=== PATIENT | male | born 1960 | race African-American/Black ===

== ENCOUNTER 2020-03-25 20:27 | Emergency (ER) | payer OTHER, SELFPAY ==
[2020-03-25 20:34] VITALS: BP 155/88; PULSE 56; RESP 18; TEMP 36.7; O2SAT 99; BMI 29.1
--- NOTE | 2020-03-25 21:09 | ECG_ITS ---
Test Reason : FALL Blood Pressure : / mmHG Vent. Rate : 052 BPM Atrial Rate : 052 BPM P-R Int : 178 ms QRS Dur : 088 ms QT Int : 426 ms P-R-T Axes : 054 014 031 degrees QTc Int : 396 ms Sinus bradycardia Otherwise normal ECG When compared with ECG of 21-JUL-2006 14:33, No significant change was found Referred By: Sharon Garcia Electronically Signed By:BAILEE BURTON
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
--- NOTE | 2020-03-25 21:10 | CT_ITS ---
EXAMINATION: CT HEAD WITHOUT CONTRAST CT CERVICAL SPINE WITHOUT CONTRAST CLINICAL INFORMATION: Fall. Trauma. COMPARISON: None. TECHNIQUE: Imaging was performed from the skull base to vertex without intravenous administration of contrast. In addition, helical noncontrast CT imaging was acquired through the cervical spine and source images were reviewed along with axial reconstructions and sagittal and coronal MPRs. [This CT examination was performed using dose optimization techniques as appropriate, variously including the following: *Automated exposure control *Adjustment of mA and/or kV according to patient size (this includes techniques or standardized protocols for targeted exams where dose is matched to indication/reason for exam; i.e. extremities or head) *Use of iterative reconstruction technique] DLP: 1386 mGy-cm FINDINGS: HEAD: Large acute scalp hematoma over the left frontal bone and vertex. There is no skull fracture. No intracranial mass, hemorrhage, or midline shift is visualized. The ventricles and sulci are age-appropriate. No extra-axial collections are identified. The paranasal sinuses and mastoid air cells are well aerated. 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 Transpedicular screws with vertical stabilization bar at C1-C2 bilateral. Hardware is intact. There is no acute fracture. There is no subluxation. No prevertebral soft tissue swelling. There is multilevel degenerative spondylosis. There is multilevel disc height narrowing, endplate spurring and facet joint arthrosis. CT/CT cervical spine wo con IMPRESSION: 1. No acute intracranial pathology. 2. No CT evidence of acute cervical spine fracture or traumatic subluxation. Old nonunited fracture of dens. Orthopedic hardware, bilateral transpedicular screws, C1-C2
[2020-03-25] MEDS: Ketorolac Tromethamine 15 MG/ML VIAL IVPUSH (21:42)
[2020-03-25 21:48] LABS: MANUAL DIFF FLAG NO
[2020-03-25 21:54] LABS: Basophils Percent Auto 0.4 % (0-2); Eosinophils Absolute Auto 0.2 X10*3/uL (0.0-0.4); Eosinophils Percent Auto 2.2 % (0-4); Hematocrit 39.5 % (42-52); Hemoglobin 13.7 g/dl (14.0-18.0); Imm Gran Abs Auto 0.03 X10*3/uL (0.00-0.03); Imm Gran Pct Auto 0.4 % (0.0-0.4); Lymphocytes Absolute Auto 1.8 X10*3/uL (1.2-4.9); Lymphocytes Percent Auto 23.2 % (20-40); Mean Corpuscular HGB Conc 34.7 g/dl (31.0-36.0); Mean Corpuscular Hemoglobin 30.2 pg (27.0-33.0); Mean Corpuscular Volume 87.2 fL (80-98); Mean Platelet Volume 10.6 fL (9.4-12.4); Monocytes Absolute Auto 0.6 X10*3/uL (0.1-1.2); Monocytes Percent Auto 7.3 % (2-11); Neutrophils Absolute Auto 5.1 X10*3/uL (2.0-8.3); Neutrophils Percent Auto 66.5 % (45-73); Platelet Count 183 X10*3/uL (160-400); Red Blood Count 4.53 X10*6/uL (4.60-5.80); Red Cell Distribution Width 12.2 % (11.0-16.0); White Blood Count 7.7 X10*3/uL (4.8-10.8)
[2020-03-25 22:18] LABS: Alanine Aminotransferase 19 U/L (0-40); Albumin Level 4.1 g/dL (3.5-5.0); Alkaline Phosphatase 70 U/L (39-117); Anion Gap 14 (12-20); Aspartate Amino Transferase 24 U/L (5-37); Bilirubin Total 0.2 mg/dL (0.0-1.0); Blood Urea Nitrogen 16 mg/dL (9-16); Calcium 8.8 mg/dL (8.4-10.2); Carbon Dioxide 26 mmol/L (22-29); Chloride 105 mmol/L (96-108); Creatinine Clr Calc Pharmacy 83.4; Estimated Glomerular Filt Rate > 60; Glucose Random 119 mg/dL (60-115); Magnesium 2.2 mg/dL (1.6-2.6); Potassium 4.5 mmol/l (3.3-5.1); Sodium 140 mmol/L (135-145); Total Protein 7.2 g/dL (6.5-8.0)
[2020-03-25] MEDS: fentaNYL citrate/PF 100 MCG/2 ML VIAL 25 MCG IVPUSH (23:32)
[2020-03-26] MEDS: Lidocaine HCl 2%/Epi 1:100,000 20 ML VIAL INFILTRATI (00:17)
--- NOTE | 2020-03-26 01:28 | PC.NURSE ---
SUTURES TO FOREHEAD. MD AT BEDSIDE. PT TOLERATED PROCEDURE WELL, BLEEDING CONTROLLED. PT SEATED UPRIGHT AND AWAKE.
[2020-03-26 02:44] VITALS: BP 139/85; PULSE 56; RESP 16; TEMP 36.4; O2SAT 97
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
== END 2020-03-26 03:03 | disposition home or self-care (01) ==
PROVIDERS: Emergency Provider Student in an Organized Health Care Education/Training Program; PCP Internal Medicine
DX: S01.01XA Laceration without foreign body of scalp, initial encounter (principal); W20.8XXA Other cause of strike by thrown, projected or falling object, initial encounter; S00.03XA Contusion of scalp, initial encounter; Y93.89 Activity, other specified; Y92.014 Private driveway to single-family (private) house as the place of occurrence of the external cause; Y99.9 Unspecified external cause status
CPT/HCPCS: 12002; 36415; 70450; 72125; 80053; 82550; 83735; 85025; 90471; 90715; 93005; 96372; 96374; 96375; 99284; J1885; J3010

== ENCOUNTER 2020-04-01 02:51 | Emergency (ER) | payer OTHER, SELFPAY ==
[2020-04-01 03:13] VITALS: BP 144/76; PULSE 55; RESP 18; TEMP 37; O2SAT 99; BMI 26.2
--- NOTE | 2020-04-01 03:14 | CT_ITS ---
EXAMINATION: CT HEAD WITHOUT CONTRAST CLINICAL INFORMATION: Recent fall, persistent severe headaches COMPARISON: 03/25/2020 TECHNIQUE: Contiguous axial imaging was performed from the skull base to vertex without intravenous administration of contrast. This CT examination was performed using dose optimization techniques as appropriate, variously including the following: *Automated exposure control *Adjustment of mA and/or kV according to patient size (this includes techniques or standardized protocols for targeted exams where dose is matched to indication/reason for exam; i.e. extremities or head) *Use of iterative reconstruction technique DLP: 803 mGy-cm FINDINGS: There is no evidence of acute intracranial hemorrhage or territorial infarction. No abnormal mass effect or midline shift is seen. Marquez to white matter differentiation is well preserved. No extra-axial fluid collections are identified. The ventricles are normal in size. Redemonstrated chronic appearing infarct in the kirill. No acute fracture is seen. Redemonstrated left frontal scalp hematoma, slightly decreased from prior.. The mastoid air cells and visualized portions of the paranasal sinuses are well aerated. CT/CT head/brain wo con IMPRESSION: No acute intracranial pathology. Redemonstrated left frontal scalp hematoma.
--- NOTE | 2020-04-01 03:15 | ED_ITS ---
HPI - Headache General Chief Complaint: Head Injury Stated Complaint: HEAD PAIN Time Seen by Provider: 04/01/20 02:53 Source: patient and old records reviewed Mode of arrival: ambulatory Limitations: no limitations History of Present Illness HPI Narrative: ongoing headache since traumatic head injury on 03/[address] of head/cspine at that time, had 4 sutures placed, ongoing headaches not responding to tylenol, has periorbital ecchymosis MD elicited complaint: headache Pertinent past history: other (recent trauma with laceration to scalp, negative CT head 03/25 4 sutures placed) Onset (ago): day(s) (7) Onset description: suddenly Location: generalized Severity: severe Quality & Timing: aching and throbbing Exacerbating factors: none Relieving factors: nothing Context: recent head injury Associated symptoms: nausea Treatments prior to arrival: acetaminophen and other (took an aspirin as well) Related Data Previous Rx's Medication Instructions Recorded cyclobenzaprine 10 mg PO TID PRN #14 tab 04/01/20 ondansetron 4 mg PO Q8H PRN #20 tab 04/01/20 oxycodone 5 mg PO Q6H PRN #14 tab 04/01/20 Allergies Allergy/AdvReac Type Severity Reaction Status Date / Time No Known Allergies Allergy Verified 03/25/20 20:37 Review of Systems Review of Systems: Constitutional : No Fever, No Chills, No Fatigue ENT/Mouth : No sore throat, No Rhinorrhea Eyes: No Eye Pain, No Swelling, No Redness Cardiovascular : No Chest Pain, No SOB, No Dyspnea on Exertion Respiratory : No Cough, No Sputum Gastrointestinal : pos Nausea, No Vomiting, No Diarrhea, No abdominal Pain Genitourinary : No Dysuria, No Urinary Frequency, No Hematuria, Musculoskeletal : No joint pain, No Myalgias, No Joint Swelling Skin : No Skin Lesions, No rash Neuro : No Weakness, No Numbness, No Dizziness, positive Headache Psych : No Anxiety/Panic, No Depression Heme/Lymph: No Bruising, No Bleeding,No Lymphadenopathy Endocrine : No Polyuria, No Polydipsia All other systems reviewed and are negative [facility] Past Medical History Attestation statement: The following information was validated with the patient. Medical History CVA (cerebral vascular accident) Liver cancer Stomach cancer Social History Social History Alcohol intake: never Smoking Status: Never smoker Advance Directives: No Advance Directives Information Provided: No Physical Exam Vital Signs: Vital Signs: Last Vital Signs Temp 98.6 F 04/01/20 03:13 Pulse 55 04/01/20 03:13 Resp 18 04/01/20 03:13 BP 144/76 H 04/01/20 03:13 Pulse Ox 99 04/01/20 03:13 Body Mass Index 26.2 Appearance: Alert. Oriented X3. No acute distress. Eyes: Pupils equal, round and reactive to light. L small medial subconj hemorrhage ENT: Pharynx normal. periorbital bilateral ecchymosis. healed sutures L foreahead x 4 Neck: Normal inspection. Neck supple. CVS: Normal heart rate and rhythm. Pulses normal. Respiratory: No respiratory distress. Breath sounds normal. Abdomen: Soft and nontender. Skin: Skin warm and dry. Normal skin color. Normal skin turgor. Extremities: No lower extremity edema. No calf ttp Neuro: Oriented X 3. No motor deficit. No sensory deficit. Course Course Course Narrative: feels better, stable for DC Procedures Procedure Narrative Procedure Narrative: removed 4 sutures from left frontal scalp, no complications, well healed, no dehiscence or signs of infection MDM - Headache MDM Narrative Medical decision making narrative: 60 yo male with traumatic head injury on 03/25 now with persistsent headaches and nausea, given degree of pain will repeat CT head for SDH (not on AC therapy) will also remove sutures, PO oxycodone and zofran ordered Discharge Plan Discharge Clinical Impression: Closed head injury, Concussion without loss of consciousness, Visit for suture removal, Hematoma Patient Disposition: Home, Self-Care Instructions: Concussion (ED), Stitches Removal (ED), Hematoma (ED) Additional Instructions: return to ED for any worsening symptoms or concerns Prescriptions: New cyclobenzaprine 10 mg tablet 10 mg PO TID PRN (Reason: muscle spasm) Qty: 14 RF: 0 ondansetron 4 mg tablet,disintegrating 4 mg PO Q8H PRN (Reason: nausea and vomiting) Qty: 20 RF: 0 oxycodone 5 mg tablet 5 mg PO Q6H PRN (Reason: pain) Qty: 14 RF: 0 Referrals: Olga Johnson MD [Primary Care Provider] - 1 day (you may need to follow up in a concussion clinic)
[2020-04-01] MEDS: oxyCODONE HCl Immed Release 5 MG TABLET 10 MG PO (03:32)
[2020-04-01 03:53] VITALS: BP 146/80; PULSE 88; RESP 16; O2SAT 97
== END 2020-04-01 05:40 | disposition home or self-care (01) ==
PROVIDERS: Emergency Provider Emergency Medicine; PCP Internal Medicine
DX: S06.0X0A Concussion without loss of consciousness, initial encounter (principal); X58.XXXA Exposure to other specified factors, initial encounter; Z48.02 Encounter for removal of sutures; Y93.9 Activity, unspecified; Y92.9 Unspecified place or not applicable; Y99.9 Unspecified external cause status
CPT/HCPCS: 70450; 99284